=== PATIENT | female | born 1935 | race Caucasian/White ===

== ENCOUNTER 2018-03-28 14:06 | Inpatient (IN) | payer OTHER ==
[~2018-03-28] VITALS: Ht 162.6 cm; Wt 71.2 kg
[~2018-03-28 14:06] MED LIST: ADULT LOW DOSE81 MG PO; CENTRUM SILVER1 EAC4 PO; HYDROCODON-ACE1 EAC7 PO; NEPHROCAPS SOFT1 CAP; NOHOMEMEDICATIONS; PAXIL10 MG; TRAMADOL 50 MG50 MG PO; TUMS PO; TYLENOL325 MG PO
[2018-03-28 14:07] VITALS: BP 181/65
[2018-03-28 14:39] LABS: ABSOLUTE BASOPHILS 0.1 thou/uL (0.0-0.2); ABSOLUTE EOSINOPHILS 0.1 thou/uL (0.0-0.7); ABSOLUTE LYMPHOCYTES 1.3 thou/uL (0.8-5.3); ABSOLUTE MONOCYTES 0.5 thou/uL (0.0-1.2); ABSOLUTE NEUTROPHILS 3.8 thou/uL (1.6-8.1); EOSINOPHILS 2.3 %; HEMOGLOBIN 15.2 gm/dL (12.0-15.0); LYMPHOCYTES 22.6 %; MCH 33.3 pg (26.0-34.0); MCHC 34.5 g/dL (28.0-37.0); MCV 96.5 fL (80.0-100.0); MONOCYTES 8.4 %; MPV 7.3 fl. (7.2-11.1); NUCLEATED RBCS 0 /100WBC; PLATELET COUNT* 251 thou/uL (150-400); POLYS 65.7 %; RBC 4.56 mil/uL (4.20-5.00); RDW-CV 13.2 % (10.5-14.5); WBC 5.7 thou/uL (4.0-11.0)
[2018-03-28 14:45] LABS: ANION GAP 5 mmol/L (7-16); BUN 12 mg/dL (7-18); CALCIUM 8.8 mg/dL (8.5-10.1); CHLORIDE 104 mmol/L (98-107); CO2 29 mmol/L (21-32); GLUCOSE 143 mg/dL (70-99); POTASSIUM 3.5 mmol/L (3.5-5.1); SODIUM 138 mmol/L (136-145)
[2018-03-28 14:52] LABS: ALBUMIN 3.5 g/dL (3.4-5.0); ALKALINE PHOSPHATASE 93 U/L (46-116); SGOT 18 U/L (15-37); SGPT 24 U/L (30-65); TOTAL BILIRUBIN 0.7 mg/dL (<0.1-1.0); TOTAL PROTEIN 6.7 g/dL (6.4-8.2); TROPONIN-I LEVEL <0.06 ng/mL (<0.06)
[2018-03-28] MEDS ORDERED: PAXIL10 MG PO (14:55)
[2018-03-28 14:57] LABS: URINE BILIRUBIN NEGATIVE (Negative); URINE BLOOD NEGATIVE (Negative); URINE CLARITY CLEAR; URINE COLOR YELLOW; URINE GLUCOSE-RANDOM NEGATIVE (Negative); URINE KETONES TRACE (Negative); URINE LEUKOCYTES-REFLEX TRACE (Negative); URINE NITRITE-REFLEX NEGATIVE (Negative); URINE PROTEIN TRACE (Negative); URINE SPECIFIC GRAVITY >= 1.030 (1.005-1.030)
[2018-03-28 14:58] LABS: SQUAMOUS 4-10 Moderate /LPF (0-3)
[2018-03-28 14:59] LABS: AMORPHOUS URATES Few /LPF (None Seen); BACTERIA-REFLEX 1-9 Few /HPF (None Seen); CASTS None Seen /LPF (None Seen); URINE RBC None Seen /HPF (0-2); URINE WBC-REFLEX None Seen /HPF (0-5)
[2018-03-28 15:07] LABS: APTT 23.8 Seconds (25.0-31.3); PROTIME 10.1 Seconds (9.20-11.50)
[2018-03-28 15:55] VITALS: BP 153/82
[2018-03-28 16:45] VITALS: BP 156/76
--- NOTE | 2018-03-28 18:32 | NUR ---
PATIENT ARRIVED FROM ER THIS EVENING. PATIENT SETTLED TO ROOM. CHILDREN AT BEDSIDE. HISTORY, ASSESSMENT AND VITALS COMPLETED AND DOCUMENTED. PATIENT RESTING IN BED AT THIS TIME. PAIN MEDICATION GIVEN X 1. HERNANDEZ IN PLACE DRAINING YELLOW URINE. PATIENT HAS IV FLUIDS INFUSING ORDERED. PATIENT DENIES ANY NEEDS AT THIS TIME. CALL LIGHT WITHIN REACH. BED ALARM ON. WILL CONTINUE TO MONITOR.
[2018-03-29] VITALS (7 sets, daily range): BP systolic 128–166; BP diastolic 64–82
[2018-03-29 04:17] LABS: HEMATOCRIT 39.5 % (37.0-47.0); HEMOGLOBIN 13.3 gm/dL (12.0-15.0)
--- NOTE | 2018-03-29 06:21 | NUR ---
PATIENT HAS SLEPT MOST OF THE NIGHT BUT GRIMACES WHEN REPOSITIONED AND REFUSES COMPLETE TURNS IN BED. PATIENT IS ALERT TO SELF BUT VERY CONFUSED. PAIN MEDICATION GIVEN NEEDED AND CHARTED. VSS ON 2L 02 VIA NASAL CANNULA. PATIENT HAS REMAINED NPO D/T SCHEDULED SURGERY THIS AM. HERNANDEZ TO DEPENDENT DRAINAGE WITH REBECCA COLORED URINE OUTPUT. IV IN LEFT AC-NS @ 100ML/HR. FALL PRECAUTIONS IN PLACE AND HOURLY ROUNDS MADE. WILL CONTINUE WITH PLAN OF CARE AND NURSING TO MONITOR.
--- NOTE | 2018-03-29 11:42 | EKG ---
[place] [address] ELECTROCARDIOGRAM REPORT Name: YAHIR CARDENAS Room: [address] ADM IN M.R.#: [id number] Admission: 03/28/18 Attend Phys: Thang Carlson Discharge: Date of : 31 Report #: [id number] THIS REPORT FOR: //name// [facility] ED Test Date: 2018-03-28 Test Time: 14:29:35 Pat Name: YAHIR CARDENAS Department: Room: [facility] Gender: F Rn Urgent Care: LAM : 1935 Requested By: Tomeka Varela Order Number: [id number] MD: Ed Vázquez Measurements Intervals [place] Rate: 70 P: 61 IA: 131 QRS: -7 QRSD: 93 T: 41 QT: 393 QTc: 425 Interpretive Statements Sinus rhythm Inferior infarct, old Baseline wander in lead(s) I,III,aVR,aVL,aVF,V1 Compared to ECG 01/24/2010 13:56:40 Sinus bradycardia no longer present Electronically Signed On 03-29-2018 11:42:09 LABORATORY COORDINATOR by Ed Vázquez [email or web address] <ELECTRONICALLY SIGNED> By: Ed Vázquez MD, FAC 03/29/18 1142 1429 1429 Ed Vázquez MD, [facility] /EPI
--- NOTE | 2018-03-29 20:19 | NUR ---
PATIENT RESTING IN BED. PATIENT HAS HIP FRACTURE REPAIR THIS AM. PATIENT RETURNED TO FLOOR THIS AFTERNOON. PATIENT PLACED ON TELEMETRY PER ORDER. PATIENT HAS BEEN TACHYCARDIC. PATIENT OXYGEN IS AT 10L HFC, CONTINUOUS SAT MONITOR ON AND SATS CURRENTLY AT 96%. PATIENT HAS HAD PAIN TREATED ADEQUATELY WITH MORPHINE AND HYDROCODONE. PATIENT HAS REFUSED TURNS DUE TO PAIN. DRESSING TO LEFT HIP IS DRY AND INTACT. PATIENT HAS REFUSED MEALS AND TAKEN ONLY SMALL AMOUNT OF ICE CHIPS. BED ALARM IS ON. WILL CONTINUE TO MONITOR.
[2018-03-30 04:01] VITALS: BP 155/105
[2018-03-30 04:25] LABS: HEMATOCRIT 35.5 % (37.0-47.0); HEMOGLOBIN 12.2 gm/dL (12.0-15.0)
--- NOTE | 2018-03-30 06:03 | NUR ---
PATIENT HAS SLEPT MOST OF THE NIGHT. PAIN CONTROLLED WITH IV PAIN MEDICATION ORDERED AND CHARTED. PATIENT IS ALERT TO SELF BUT VERY CONFUSED AND ANXIOUS BUT HAS HISTORY OF DEMENTIA AND ANXIETY. PATIENT GRIMACES AND YELLS OUT WHEN REPOSITIONED AND REFUSES COMPLETE TURNS BUT PATIENT REPOSITIONED EVERY 2HRS. VSS ALTHOUGH 02 SATS DECREASES AT TIMES WHEN PATIENT GETS ANXIOUS AND PULSE TACHY. DRESSING TO LEFT HIP IS C/D/I AND POLAR PACK ON HIP. FALL PRECAUTIONS IN PLACE AND HOURLY ROUNDS MADE. WILL CONTINUE WITH PLAN OF CARE AND NURSING TO MONITOR.
[2018-03-30 12:00] VITALS: BP 150/76
--- NOTE | 2018-03-30 16:18 | NUR ---
SW met with pt and pt 2 dtrs bedside to complete assessment, introduce self, and SW role. Pt alert. Pt lives at home with one of her dtrs, Lizbeth and has support in other dtr as well, Corinne. Pt dtrs anticipate pt needing SNF at dc and their preference is [facility]. Pt does not have any oxygen at home. Pt has hx of SNF at [facility]. SW to continue to follow to assist with safe dc planning.
[2018-03-30 16:43] VITALS: BP 168/79
[2018-03-30 19:30] VITALS: BP 141/81
[2018-03-30 23:37] LABS: HEMATOCRIT 34.1 % (37.0-47.0); HEMOGLOBIN 11.5 gm/dL (12.0-15.0); MCHC 33.7 g/dL (28.0-37.0); MCV 97.8 fL (80.0-100.0); RBC 3.49 mil/uL (4.20-5.00); RDW-CV 13.2 % (10.5-14.5); WBC 15.4 thou/uL (4.0-11.0)
[2018-03-30 23:55] LABS: CREATININE 1.2 mg/dL (0.6-1.3)
[2018-03-31 01:17] LABS: URINE BILIRUBIN NEGATIVE (Negative); URINE BLOOD TRACE (Negative); URINE CLARITY CLEAR; URINE COLOR YELLOW; URINE GLUCOSE-RANDOM NEGATIVE (Negative); URINE KETONES NEGATIVE (Negative); URINE LEUKOCYTES-REFLEX NEGATIVE (Negative); URINE NITRITE-REFLEX NEGATIVE (Negative); URINE PROTEIN TRACE (Negative); URINE SPECIFIC GRAVITY >= 1.030 (1.005-1.030); URINE UROBILINOGEN 0.2 E.U./dl (0.2-1.0)
[2018-03-31 02:08] LABS: HEMATOCRIT 33.2 % (37.0-47.0); HEMOGLOBIN 11.3 gm/dL (12.0-15.0)
[2018-03-31 04:00] VITALS: BP 163/83
--- NOTE | 2018-03-31 04:00 | NUR ---
PT TRANSFERED AT 0045. TESTED POSITIVE FOR SEPSIS. STARTED ABX AND BOLUS 1L OF FLUIDS. 8L OF OXYGEN PER NC AND KEEPS PULLING AT TUBING. PT CONFUSED.
[2018-03-31 08:00] VITALS: BP 158/82
--- NOTE | 2018-03-31 09:35 | NUR ---
CM faxed initial referral to [facility] to determine their ability to accept Pt at ne. Following.
[2018-03-31 13:36] VITALS: BP 170/61
--- NOTE | 2018-03-31 14:40 | 2DMMODE ---
[place] [address] 2 D/M-MODE ECHOCARDIOGRAM Name: YAHIR CARDENAS Room: [facility]- ADM IN [facility]#: [id number] Admission: 03/28/18 Attend Phys: Shankar Sadler Discharge: Date of : 31 Date of Service: 03/31/18 1440 Report #: [id number] THIS REPORT FOR: //name// APPROVED REPORT Study performed: 03/31/2018 11:00:40 EXAM: Comprehensive 2D, Doppler, and color-flow Echocardiogram Patient Location: In-Patient Room #: 213 Status: routine BSA: 1.76 HR: 80 bpm BP: 163/83 mmHg Rhythm: NSR Other Information Study Quality: Fair Indications Abnormal ECG 2D Dimensions IVSd: 11.26 (7-11mm) LVOT Diam: 20.04 (18-24mm) LVDd: 47.77 mm PWd: 10.19 (7-11mm) Ascending Ao: 29.79 (22-36mm) LVDs: 27.24 (25-40mm) Aortic Root: 30.19 mm Volumes Left Atrial Volume (Systole) LA ESV Index: 28.70 mL/m2 Aortic Valve AoV Peak Chung.: 1.52 m/s AO Peak Gr.: 9.26 mmHg LVOT Max P.01 mmHg AO Mean Gr.: 4.63 mmHg LVOT Mean P.53 mmHg LVOT Max V: 1.66 m/s AO V2 VTI: 29.72 cm LVOT Mean V: 1.09 m/s LIZBET (VTI): 2.89 cm2 LVOT V1 VTI: 27.19 cm Mitral Valve E/A Ratio: 0.61 MV Decel. Time: 244.49 ms MV E Max Chung.: 0.63 m/[place] [address] 2 D/M-MODE ECHOCARDIOGRAM Name: YAHIR CARDENAS Room: [address] IN .R.#: [id number] Admission: 03/28/18 Attend Phys: Shankar Sadler Discharge: Date of : 31 Date of Service: 03/31/18 1440 Report #: [id number] MV PHT: 70.90 ms MVA (PHT): 3.10 cm2 TDI E/Lateral E': 6.30 Lateral E' Chung.: 0.10 m/s Pulmonary Valve PV Peak Chung.: 1.33 m/s PV Peak Gr.: 7.10 mmHg Tricuspid Valve RAP Estimate: 5.00 mmHg TR Peak Gr.: 24.38 mmHg RVSP: 29.00 mmHg PA Pressure: 29.00 mmHg Left Ventricle The left ventricle is normal size. There is normal LV segmental wall motion. There is normal left ventricular wall thickness. Left ventricular systolic function is normal. The left ventricular ejection fraction is within the normal range. LVEF is 65-70%. Grade I - abnormal relaxation pattern. Right Ventricle The right ventricle is normal size. The right ventricular systolic function is normal. Atria The left atrium size is normal. The right atrium size is normal. Aortic Valve The aortic valve is normal in structure. No aortic regurgitation is present. There is no aortic valvular stenosis. Mitral Valve The mitral valve is normal in structure. Trace mitral regurgitation. No evidence of mitral valve stenosis. Tricuspid Valve The tricuspid valve is normal in structure. Mild tricuspid regurgitation. estimated pa pressure 30 mm Hg Pulmonic Valve Pulmonic valve is not well visualized. There is no pulmon[place] [address] 2 D/M-MODE ECHOCARDIOGRAM Name: YAHIR CARDENAS Room: [address] IN [facility]#: [id number] Admission: 03/28/18 Attend Phys: Shankar Sadler Discharge: Date of : 31 Date of Service: 03/31/18 1440 Report #: [id number] Great Vessels The aortic root is normal in size. IVC is not well visualized. Pericardium There is no pericardial effusion. <Conclusion> Left ventricular systolic function is normal. The left ventricular ejection fraction is within the normal range. <ELECTRONICALLY SIGNED> By: Ed Vázquez MD, FAC 03/31/18 1440 1440 1440 Ed Vázquez MD, FAC /INF
--- NOTE | 2018-03-31 16:36 | EKG ---
[place] [address] ELECTROCARDIOGRAM REPORT Name: YAHIR CARDENAS Room: [address] ADM IN M.R.#: [id number] Admission: 03/28/18 Attend Phys: Thang Carlson Discharge: Date of : 31 Report #: [id number] THIS REPORT FOR: //name// [facility] Test Date: 2018-03-30 Test Time: 22:51:10 Pat Name: YAHIR CARDENAS Department: Room: [address] Gender: F Systems Development Manager: [place] : 1935 Requested By: Genet Varner Order Number: [id number] Justin MD: Ed Vázquez Measurements Intervals [place] Rate: 113 P: 54 CO: 113 QRS: -8 QRSD: 96 T: 153 QT: 335 QTc: 460 Interpretive Statements Sinus tachycardia Atrial premature complexes Nonspecific repol abnormality, diffuse leads Baseline wander in lead(s) V4 Compared to ECG 03/28/2018 14:29:35 Atrial premature complex(es) now present Sinus rhythm no longer present Electronically Signed On 03-31-2018 16:35:49 CONCRETE PRODUCTS DISPATCHER by Ed Vázquez [email or web address] <ELECTRONICALLY SIGNED> By: Ed Vázquez MD, FACC 03/31/18 1635 2251 2251 Ed Vázquez MD, [facility] /EPI
[2018-03-31 17:11] VITALS: BP 152/88
[2018-04-01] VITALS: BP 142/85; BP 147/81
[2018-04-01 04:00] VITALS: BP 171/75
--- NOTE | 2018-04-01 04:39 | NUR ---
ASSUMED CARE OF PT AT 1900. PT IS VERY CONFUSED. VSS. BURROUGHS. SOME PAIN NOTED. PT IS IN SOFT WRIST RESTRAINTS TO PROTECT HER FROM PULLING OUT URINARY CATHETER AND OTHER MEDICAL LINES. WHILE TRYING TO RELEASE PT FROM RESTRAINTS SHE GRABBED HER URINARY CATHETER AND BEGAN PULLING IT ALMOST PULLING IT OUT. RESTRAINTS WHERE PLASCED BACK UPON THE PT. PT IS IN SINUS RYTHM. PT IS A Q2 TURN. PT IS SLEEPING QUIETLY IN BED. RESPIRATIONS ARE EVEN AND NONLABORED. WILL CONTINUE TO MONITOR PT.
[2018-04-01 05:26] LABS: CALCIUM 8.5 mg/dL (8.5-10.1); CREATININE 0.8 mg/dL (0.6-1.3); MAGNESIUM 2.4 mg/dL (1.8-2.4); POTASSIUM 4.2 mmol/L (3.5-5.1)
[2018-04-01 08:15] VITALS: BP 141/78
--- NOTE | 2018-04-01 11:09 | NUR ---
Spoke with , anticipate dc within a few days, Pt continues to be confused and not wanting to bare weight on her leg. CM updated Kerline at [facility], asked that insurance auth be initiated tomorrow for a possible weekend dc, if they are able to accept Pt for skilled. Following.
[2018-04-01 12:00] VITALS: BP 155/89
--- NOTE | 2018-04-01 14:59 | EKG ---
[place] [address] ELECTROCARDIOGRAM REPORT Name: YAHIR CARDENAS Room: [address] ADM IN M.R.#: [id number] Admission: 03/28/18 Attend Phys: Thang Carlson Discharge: Date of : 31 Report #: [id number] THIS REPORT FOR: //name// [facility] Test Date: 2018-04-01 Test Time: 08:16:33 Pat Name: YAHIR CARDENAS Department: Room: [address] Gender: F Ice Platform Supervisor: : 1935 Requested By: Ed Vázquez Order Number: [id number] Justin MD: Ed Vázquez Measurements Intervals [place] Rate: 84 P: 64 [place]: 124 QRS: -8 QRSD: 86 T: 29 QT: 355 QTc: 420 Interpretive Statements Sinus rhythm Abnormal R-wave progression, early transition Baseline wander in lead(s) II,III,aVF,V3 Compared to ECG 03/30/2018 22:51:10 Left ventricular hypertrophy no longer present Sinus tachycardia no longer present Atrial premature complex(es) no longer present Electronically Signed On 04-01-2018 14:59:14 SALOONKEEPER by Ed Vázquez [email or web address] <ELECTRONICALLY SIGNED> By: Ed Vázquez MD, FACC 04/01/18 1459 5 5 Ed Vázquez MD, FAC /EPI
[2018-04-01 16:00] VITALS: BP 177/88
--- NOTE | 2018-04-01 17:17 | CON ---
[facility] [address] [place] [address] CONSULTATION Name: CARDENASYAHIR Yessy Room: [address] IN M.R.#: [id number] Admission: 03/28/18 Attend Phys: Thang Carlson Discharge: Date of : 31 Report #: [id number] THIS REPORT FOR: //name// CC: Ashley Sadler DATE OF SERVICE: 03/31/2018 CARDIOLOGY CONSULTATION HISTORY OF PRESENT ILLNESS: The patient is an 82-year-old single white female who I was asked to see in the hospital today after she was noted to have a rapid heartbeat. The history is obtained from the current records as well as the daughter. The patient is currently unresponsive. There are no old records available. According to daughter, the patient has no history of heart disease. She does have severe dementia and is not very active. She does feed herself. She does not use a cane or walker; however, she has a significant amount of memory loss. Apparently, the patient tripped and fell 5 days ago at home. She complained of left hip pain. She was found to have a left hip fracture. Three days ago, she was taken to the operating room and had hip surgery. Since surgery, her mental status has been decreased. She has had no appetite. Yesterday, she was noted to be tachycardic. She was transferred to a monitored bed. I was asked to see her for further evaluation and treatment. She denies any chest pain, shortness of breath, lightheadedness. She was told in the past she had a heart murmur. PAST MEDICAL HISTORY: Significant for hysterectomy. She does have cataracts, but no surgery. She has no history of hypertension, diabetes, hyperlipidemia. MEDICATIONS: Paxil. ALLERGIES: SHE HAS AN ALLERGY TO AN ANTIBIOTIC. FAMILY HISTORY: Negative for heart disease. SOCIAL HISTORY: She has been twice. Quit smoking years ago. No alcohol use. She lives with daughter here in [place]. REVIEW OF SYSTEMS: No history of stroke, asthma, peptic ulcer disease, liver disease, kidney disease or cancer. PHYSICAL EXAMINATION: GENERAL: Revealed an elderly female lying in bed with her eyes closed. She was mumbling. VITAL SIGNS: She had a blood pressure of 140/80, pulse is 110[place] [address] CONSULTATION Name: YAHIR CARDENAS Room: [address]#: [id number] Admission: 03/28/18 Attend Phys: Thang Carlson Discharge: Date of : 31 Report #: [id number] afebrile. HEENT: She was anicteric. Mucous membranes are dry. NECK: Neck veins do not appear distended. CHEST: Clear to auscultation. CARDIOVASCULAR: Regular tachycardia, no significant murmur. ABDOMEN: Soft. EXTREMITIES: Had no edema. Dorsalis pedis pulses 1+ bilaterally. SKIN: Cool and dry. NEUROLOGIC: She was unresponsive to voice. LABORATORY DATA: ECG on admission showed a sinus rhythm, possible old inferior infarction. On the monitor, the patient has been noted to be in sinus tachycardia with PACs. Last night, she developed a supraventricular tachycardia at 150 beats per minute, appeared to be consistent with an atrial tachycardia. Currently, she is back in a sinus tachycardia. Workup so far, she had a chest x-ray on admission that showed mild cardiomegaly, evidence of interstitial fibrosis. She had CT scan of the head without contrast on admission that showed no acute abnormality, evidence of small vessel disease. Her previous carotid Doppler study in 2009 showed no significant stenosis. LABORATORY WORK: Sodium 143, creatinine 1.2, glucose 170. Her liver function studies were normal. Her white blood cell count 15.4, hemoglobin is 15.2 on admission, is now 11.3. Urinalysis negative for glucose, trace blood, negative for leukocytes. IMPRESSION AND RECOMMENDATIONS: 1. Episode of paroxysmal atrial tachycardia. I would check echocardiogram and thyroid function studies. I would not treat at this time. The patient is unable to take oral medications presently. 2. Dementia. 3. Recent hip fracture. 4. Elevated blood sugar. I would rule out diabetes. 5. Elevated blood pressure. Possible hypertension. <ELECTRONICALLY SIGNED> By: Ed Vázquez MD, FACC 04/01/18 1717 0816 0012Damaya Vázquez MD, FACC /nt
--- NOTE | 2018-04-01 19:47 | NUR ---
ASSUMED PT CARE AT 0730, FULL ASSESMENT DONE CHARTED. PT DISORIENTED, CONFUSED, AND COMBATIVIE AT TIMES. PTS HRENANDEZ REMOVED THIS AM. PT NOT PULLING ON ANYTHING THIS AFTERNOON, DID BECOME ALITTLE MORE AGITATED THIS EVENING PULLING GOWN OFF AND HEART MONIOTR. PT REORIENTED MANY TIMES TODAY. NOT EATING MUCH, IS ASSISTED WITH FOOD, TOOK PILLS CRUSHED IN PUDDING WITH A LOT OF ASSISTANCE. PT REFUSING TO GET UP WITH PT. PAIN MEDS GIVEN PER MAR AND POLAR PACK IN PLACE. FALL PRECAUTIONS IN PLACE. CALL LIGHT IN REACH, PT DOES NOT ATTEMPT TO USE IT.
[2018-04-02] VITALS: BP 124/68
[2018-04-02 04:00] VITALS: BP 185/73
--- NOTE | 2018-04-02 04:19 | NUR ---
RECIEVED REPORT AN ASSUMED CARE AT 1900. VITAL SIGNS STABLE. MAX ASSIST. PT IN PAIN AND PRN MEDS GIVEN ORDERED. A&O X 1 PERSON. PT ON 8L NC. ASSESSMENT COMPLETED. BED LOCKED, ALARM, AND CALL LIGHT WITHIN REACH. HOURLY ROUNDING DONE AND ALL NEEDS MET. NURSING WILL CONTINUE TO MONITOR.
--- NOTE | 2018-04-02 06:07 | CON ---
[address] [address] CONSULTATION Name: YAHIR CARDENAS Room: [address] IN M.R.#: [id number] Admission: 03/28/18 Attend Phys: Thang Carlson Discharge: Date of : 31 Report #: [id number] THIS REPORT FOR: //name// CC: Ashley Sadler DATE OF SERVICE: 04/01/2018 Infectious Disease Consultation: ATTENDING PHYSICIAN: Dr. Sadler. REASON FOR EVALUATION: Postoperative fevers, likely pneumonitis in the setting of admission with acute left hip fracture status post repair. HISTORY OF PRESENT ILLNESS: Chart reviewed, patient is an 82-year-old with a history of dementia who sustained injury as a result of a fall, sustained complex hip fracture, intertrochanteric fracture with displacement underwent intramedullary nailing. Postop course has been complicated by fairly profound encephalopathy. It is difficult to ascertain any details of her history. She repeats words over and over, was found to have low-grade temperature elevation, yesterday 99.6. Chest x-ray was taken to evaluate and noted some basilar infiltrates, left greater than right with possible effusion. Lactic acid is 1.2, it is down from 2.1. Blood cultures are sterile thus far. Empirically placed on antimicrobials with meropenem and briefly been on Cipro. ALLERGIES: LINCOMYCIN. MEDICATIONS: Include quetiapine, methylprednisolone, meropenem, rivaroxaban, morphine, ipratropium, albuterol inhaler, p.r.n. analgesics, antiemetics, paroxetine, tramadol, olanzapine. PAST MEDICAL HISTORY: As noted above the dementia, history of anxiety, reflux. SOCIAL HISTORY: Nonsmoker, no ethanol, no illicit drug use. FAMILY HISTORY: Noncontributory. REVIEW OF SYSTEMS: It is not obtainable due to the profound encephalopathy, perhaps even psychosis. PHYSICAL EXAMINATION: VITAL SIGNS: Temperature 98.6. GENERAL: She is chronically ill appearing. She has got acute on chronic distress with echolalia. It is difficult for her to find a comfortable position[place] [address] CONSULTATION Name: YAHIR CARDENAS Room: [address] IN [facility]#: [id number] Admission: 03/28/18 Attend Phys: Thang Carlson Discharge: Date of : 31 Report #: [id number] VITAL SIGNS: Temperature 97.8, pulse 102, respirations 17, blood pressure 155/89. SKIN: Warm. No rash. NECK: Apparently supple. LUNGS: Scattered coarse breath sounds. Borderline tachypnea. HEART: Regular, tachycardic, has a soft systolic murmur. ABDOMEN: Soft. I do not appreciate any peritoneal signs. GENITOURINARY AND RECTAL: Deferred. EXTREMITIES: Left hip has got a dressing in place. There is no drain at this point. I do not see any particular evidence of any inflammatory eruption consistent with a cellulitic process. LABORATORY DATA: Lactic acid 1.2. TSH of 0.181. Electrolytes: Sodium 147, potassium 4.2, chloride 111, bicarbonate is 30, BUN and creatinine 25 and 0.8, glucose of 148. Chest x-ray as noted above, worse bilateral infiltrates at the bases. CBC: White count 15.4, H and H 11.5 and 34.1, platelets of 230. Reviewed operative report of the closed reduction and cephalomedullary nailing and the reverse obliquely left intertrochanteric femur fracture. Blood cultures are sterile thus far. ASSESSMENT: Postoperative pneumonitis. I think the patient is quite compromised at this point. I agree with empiric antimicrobial therapy. I do not think there is any sputum forthcoming at this point. We will await pending blood culture results. Continue to monitor expectantly support with supplemental oxygen. Certainly, at risk for nosocomial related infectious complications in addition to what has been identified thus far. <ELECTRONICALLY SIGNED> By: Aaron Thornton MD 04/02/18 0607 1406 0330Aaron Thornton MD /nt
[2018-04-02 09:00] VITALS: BP 133/69
--- NOTE | 2018-04-02 10:21 | NUR ---
Yvonne from [facility] came to daphnieal yesterday, Pt continues to be confused, Yvonne to come and reeval today. Per Yvonne if they are able to accept Pt, Yvonne does not believe that Pt would be a good weekend admission, d/t Pt's acuity, would prefer to admit during the work week, when all of the staff are available.
[2018-04-02 12:00] VITALS: BP 185/99
[2018-04-02 12:05] VITALS: BP 176/101
[2018-04-02 14:40] LABS: HEMATOCRIT 28.9 % (37.0-47.0); MCH 34.3 pg (26.0-34.0); MCHC 34.8 g/dL (28.0-37.0); MCV 98.6 fL (80.0-100.0); MPV 7.3 fl. (7.2-11.1); NUCLEATED RBCS 0 /100WBC; PLATELET COUNT* 235 thou/uL (150-400); RBC 2.93 mil/uL (4.20-5.00); WBC 10.7 thou/uL (4.0-11.0)
[2018-04-02 14:53] LABS: ALBUMIN 2.9 g/dL (3.4-5.0); CALCIUM 8.5 mg/dL (8.5-10.1); CREATININE 0.8 mg/dL (0.6-1.3); MAGNESIUM 2.5 mg/dL (1.8-2.4); POTASSIUM 3.9 mmol/L (3.5-5.1); TOTAL BILIRUBIN 1.4 mg/dL (<0.1-1.0); TOTAL PROTEIN 5.8 g/dL (6.4-8.2)
[2018-04-02 15:39] LABS: ABSOLUTE LYMPHOCYTES 0.2 thou/uL (0.8-5.3); ABSOLUTE MONOCYTES 0.2 thou/uL (0.0-1.2); ABSOLUTE NEUTROPHILS 10.3 thou/uL (1.6-8.1); MYELOCYTES 1 %; PLATELET ESTIMATE ADEQUATE
--- NOTE | 2018-04-02 15:53 | NUR ---
ASSUMED PT CARE AT 0700 PT IS AWAKE PT IS CONFUSED PT HAS APHASIA PT SHOWS SIGNS OF PAIN GAVE PAIN MEDS THROUGHOUT SHIFT, PHYSICIAL THERAPY GOT PT UP IN CHAIR WITH ASSIST X 2 PT IS UNABLE TO HELP WITH TRANSFERS, PT IS ST ON THE MONITOR, PT UP IN CHAIR PT STARTED TO SCREAM AND SPEECH WAS NOT INTELLIABLE PT TRANSFERED BACK TO BED AND PAIN MEDS GIVEN PT SHOWED SIGNS OF PAIN REASSESSED PT WHO IS SLEEPING AND CALM, PT HAS ANTIBIOTICS RUNNING, PT IS Q 2 TURNS, PT IS A FALL RISK BED ALARM IS ON, WILL CONTINUE TO MONITOR
[2018-04-02 20:00] VITALS: BP 156/65
[2018-04-03 00:23] VITALS: BP 142/89
--- NOTE | 2018-04-03 03:05 | NUR ---
PT SLEEPY CONFUSED. TURN Q 2 HRS. MORPHINE GIVEN ONCE FOR PAIN IN L HIP. TELEMETRY SHOWS SR. O2 ON 8 LITERS HIGH FLOW.
[2018-04-03 04:10] VITALS: BP 170/85
--- NOTE | 2018-04-03 04:43 | NUR ---
BLADDER SCAN 166ML
[2018-04-03 12:00] VITALS: BP 173/65
[2018-04-03 16:00] VITALS: BP 144/125
--- NOTE | 2018-04-03 19:55 | NUR ---
ASSUMED PT CARE AT 0700 PT IS AWAKE CONFUSED PT SHOWS SIGNS OF PAIN GAVE PAIN MEDS PT REASSESSED PT WHO IS CALM, PT IS Q 2 TURNS, PT IS A FALL RISK BED ALARM IS ON, PT IS SA ON THE MONITOR, PT IS BEDREST, PT TAKES MEDS CRUSHED IN [place] PUDDING, PHYSICIAN ORDERED ENSURE WHICH PT DRANK 1 COMPLETE BOTTLE AT DINNER, PT SHOWS NO SIGNS OF SOA ON 8L/HIFLOW, PT IS INCONTIET, WILL CONTINUE TO MONITOR
[2018-04-03 20:00] VITALS: BP 169/66
[2018-04-04] VITALS: BP 171/84
[2018-04-04 04:59] VITALS: BP 169/82
[2018-04-04 05:03] LABS: ABSOLUTE LYMPHOCYTES 0.4 thou/uL (0.8-5.3); ABSOLUTE MONOCYTES 0.5 thou/uL (0.0-1.2); ABSOLUTE NEUTROPHILS 9.6 thou/uL (1.6-8.1); BASOPHILS 0.1 %; HEMATOCRIT 29.5 % (37.0-47.0); HEMOGLOBIN 10.1 gm/dL (12.0-15.0); LYMPHOCYTES 3.4 %; MCH 33.8 pg (26.0-34.0); MCHC 34.2 g/dL (28.0-37.0); MONOCYTES 4.7 %; MPV 7.7 fl. (7.2-11.1); NUCLEATED RBCS 0 /100WBC; PLATELET COUNT* 212 thou/uL (150-400); POLYS 91.8 %; RBC 2.98 mil/uL (4.20-5.00); RDW-CV 13.1 % (10.5-14.5); WBC 10.5 thou/uL (4.0-11.0)
[2018-04-04 05:24] LABS: CALCIUM 8.6 mg/dL (8.5-10.1); CREATININE 0.7 mg/dL (0.6-1.3); POTASSIUM 4.3 mmol/L (3.5-5.1)
--- NOTE | 2018-04-04 08:14 | NUR ---
PT CARE ASSUMED AT 1930. PT IS DISORIENTED AND UNRESPONSIVE. SAT 94% IN 8L HFNC. CALL LIGHT WITHIN REACH AND FALL PREACAUTIONS MAINTAINED. VSS AND CHARTED. PT IS INCONTINENT, CHANGED NEEDED, REPEATS WORD. ANSWERS QUESTIONS BUT DOESNT FOLLOW. CONTRACTS HER HAND REAL TIGHT. PAIN MEDICATIONS GIVEN PER EMAR NEEEDED AND CHARTED. SEEN SLEEPING AFTER THE PAIN MEDICATION.
[2018-04-04 12:00] VITALS: BP 187/98
[2018-04-04 16:47] VITALS: BP 190/59
--- NOTE | 2018-04-04 18:14 | NUR ---
PATINET RESTING IN BED. Q2HOUR TURNS AND RESTING PEACEFULY. PATINET IS AOX1 AND HARD TO REORIENT. LEFT ORIF SURGICAL WOUND. VITAL SIGNS STABLE ANDPAITNET IN NO APPARENT DIGNS OF DISTRESS. HOURLY ROUNDING COMPLETED COMPLETED FOR PATINET SAFETY AND PATIENT IS PROGRESSING TOWARDS GOALS.
[2018-04-04 20:32] VITALS: BP 147/95
[2018-04-05] VITALS: BP 168/92
[2018-04-05 04:00] VITALS: BP 179/91
--- NOTE | 2018-04-05 06:02 | NUR ---
ASSUMED CARE OF PATIANT AT APPROX 1930. PATIENT ALERT BUT VERY CONFUSED. VSS ON 5 LITERS 02 VIA NC. ASSESSMENT COMPLETED AND CHARTED. PATIENT IS INCONTINENT OF BOWEL AND BLADDER. LARGE BOWEL MOVEMENT THIS SHIFT. IV PATENT WITH FLUIDS AND ANTIBIOTICS INFUSED. DRESSING TO LEFT HIP CHANGED THIS SHIFT. PAIN MEDICATION GIVEN ORALLY, CRUSHED IN PUDDING, NEEDED. POSITION CHANGES COMPLETED AND ORDERED. NSR ON THE MONITOR. HOURLY ROUNDS MAINTAINED, CALL LIGHT WITHIN REACH, NURSING WILL CONTINUE TO MONITOR.
[2018-04-05 06:08] LABS: HEMATOCRIT 31.4 % (37.0-47.0); HEMOGLOBIN 10.6 gm/dL (12.0-15.0); MCHC 33.6 g/dL (28.0-37.0); MCV 98.2 fL (80.0-100.0); MPV 8.4 fl. (7.2-11.1); RBC 3.2 mil/uL (4.20-5.00); RDW-CV 13.1 % (10.5-14.5); WBC 13.7 thou/uL (4.0-11.0)
[2018-04-05 06:38] LABS: CALCIUM 8.7 mg/dL (8.5-10.1); CREATININE 0.6 mg/dL (0.6-1.3); MAGNESIUM 2.3 mg/dL (1.8-2.4); POTASSIUM 3.5 mmol/L (3.5-5.1)
[2018-04-05 08:00] VITALS: BP 163/76
--- NOTE | 2018-04-05 10:41 | NUR ---
CM had a lengthy discussion with Pt's dtr regarding disposition. Dtr would like to see Pt go to skilled, unsure of Pt's ability to progress with therapies. Discussed LTC, dtr partially in agreement, but concerned about the care that Pt will receive. MARIANO contacted Kerline at [facility], they do not have any LTC beds and cannot accept Pt for skilled. CM provided dtr with SNF lift per her insurance. Discussed hospice, dtr open to an informational visit. Updated Dr Sanders. Discussed hospice options, Sonia from [facility] to be here at 130pm to complete informational visit. Following.
--- NOTE | 2018-04-05 11:09 | NUR ---
SHANK INSPECTOR SPOKE TO HERMAN WITH ADMISSIONS FOR [facility] TO INFORM OF THE SKILLED REFERRAL AND FAXED PATIENT'S FACESHEET, H&P, AND CLINICAL INFO. HERMAN INFORMS THAT THE FACILITY DOES HAVE BED AVIALABILITY, AND WILL REVIEW THE REFERRAL AND RETURN CALL. CM WILL REMAIN AVIALABLE TO ASSIST AND FOLLOW NEEDED.
--- NOTE | 2018-04-05 12:36 | NUR ---
Nutrition: Consult received for "Ensure b.i.d." RD ordered Ensure Enlive b.i.d. Pt likes Ensure. She is eating some, dtr helping to feed pt. Wt stable, 157#. BG 141, albumin 2.9. +BM today. Mech-[place] Ground diet. Pt will go to SNF at disch. No other nutrition interventions needed at this time. Mild risk. RD will follow po intake, wt, labs.
[2018-04-05 12:39] VITALS: BP 137/65
--- NOTE | 2018-04-05 16:13 | NUR ---
Pt qualifies for hospice, plan dc to home with [facility] hospice tomorrow. Updated Dr Sanders. Equipment to be delievered to Pt's home tomorrow between 10-1230. Updated nurse.
[2018-04-05 16:21] VITALS: BP 152/87
--- NOTE | 2018-04-05 18:22 | NUR ---
PATIENT RESTING IN BED. UP TO BEDSIDE WITH PT AND ASSIST X1. PATIENT VITAL SIGNS STABLE AND PATIENT IN NO APPARNET SIGNS OF DISTRESS AT THIS TIME. HOURLY ROUNDING COMPLETED FOR PATINET SAFETY AND PROGRESSING TOWARDS GOALS. EXPECTED DISCHARGE TO HOME WITH HOSPICE CARE ON Thursday03/06/18.
[2018-04-05 20:00] VITALS: BP 157/88
--- NOTE | 2018-04-05 23:06 | NUR ---
PT CONFUSED. PAIN MEDICATION GIVEN FOR L HIP PAIN. O2 AT 5 LITERS NC. LIQUID STOOL MIXED WITH URINE. TURN Q [address]
[2018-04-06] VITALS: BP 132/78
[2018-04-06 04:00] VITALS: BP 153/83
--- NOTE | 2018-04-06 05:25 | NUR ---
PT HAD EPISOID OF APPROX 300ML OF DARK COFFEE GROUNDS EMESIS. DR BERNAL NOTIFIED. NO NEW ORDERS AT THIS TIME. MORPHINE GIVEN TWICE.
[2018-04-06 05:53] LABS: ALBUMIN 2.6 g/dL (3.4-5.0); CALCIUM 8.1 mg/dL (8.5-10.1); CREATININE 0.6 mg/dL (0.6-1.3); PHOSPHORUS* 2.6 mg/dL (2.5-4.9); POTASSIUM 4.2 mmol/L (3.5-5.1)
--- NOTE | 2018-04-06 10:23 | NUR ---
Pt discharging to home today with [facility]. Ambulance to transport at 1pm. Updated [facility] with [facility]. CM to fax dc orders to hospice. DME delievered, dtr currently at home setting up inhome care services.
[2018-04-06 11:36] VITALS: BP 153/83
[2018-04-06 11:57] VITALS: BP 145/75
--- NOTE | 2018-04-06 15:42 | NUR ---
ORDER RECEIVED TO DISCHARGE [facility] TO HOSPICE CARE WITH DAUGHTER. MED REC, MEDICATION EDUCATON, STROKE EDUCATION COVERED AND STATED UNDERSTOOD BY DAUGHTER. IV AND TELEMETRY PACK REMOVED. PATIENT S ELONGOINGS GATHERED AND SENT WITH [facility]. EMS ARRIVED AND TRANSPORTED PATIENT VIA CART TO AMBULANCE. HOURLY ROUNDING COMPLETED FOR PATIENT SAFETY. DISCHARGE TIME OF 13:25.
--- NOTE | 2018-04-09 07:14 | OP ---
[facility] [address] [place] [address] OPERATIVE REPORT Name: YAHIR CARDENAS Room: [address] IN M.R.#: [id number] Admission: 03/28/18 Attend Phys: Thang Carlson Discharge: 04/06/18 Date of : 31 Report #: [id number] THIS REPORT FOR: //name// CC: Ashley Sadler PREOPERATIVE DIAGNOSIS: Left reverse obliquity intertrochanteric femur fracture. POSTOPERATIVE DIAGNOSIS: Left reverse obliquity intertrochanteric femur fracture. PROCEDURE: 1. Closed reduction and cephalomedullary nailing of reverse obliquity left intertrochanteric femur fracture. 2. Physician-directed fluoroscopy less than 1 hour. SURGEON: Roni Enamorado DO. EARTH SCIENCE TECHNICIAN: Pedro Valdes DO. ANESTHESIA: General. ANTIBIOTICS: Weight-appropriate dosing of Ancef IV preoperatively. ESTIMATED BLOOD LOSS: 100 mL. FLUIDS: 1100 mL lactated Ringer's. COMPLICATIONS: None. SPECIMENS: None. DRAINS: None. CONDITION OF THE PATIENT: Stable to PACU. IMPLANTS: [place] Gamma cephalomedullary nail, 11 x 400 x 125 degrees with 90-mm lag screw and 50-mm distal interlocking screw in the static hole. INDICATIONS FOR PROCEDURE: The patient was admitted to [facility] after a fall. She sustained a reverse obliquity intertrochanteric femur fracture. She has quite significant dementia and does not even know that she broke her leg, even though she has been told multiple times. Her daughter, who is the power of deputy attorney general, was present during my examination and I have discussed with her the findings, diagnosis, recommendations and risks and complications associated with surgery. She gave verbal and written [place] [address] OPERATIVE REPORT Name: YAHIR CARDENAS Room: [address] IN ..#: [id number] Admission: 03/28/18 Attend Phys: Thang Carlson Discharge: 04/06/18 Date of : 31 Report #: [id number] Please see consultation note for full details of our discussion. DESCRIPTION OF PROCEDURE: I marked the left lower extremity in the presence of the operative team members; everyone agreed this was correct. She was then taken back to the operative suite, where a briefing was performed indicating correct patient, procedure, site, antibiotics and implants were present and sterile. All team members agreed. General anesthetic was administered. She was then transferred over to the operative table in the supine position, well padded and secured. Right leg was placed into the well leg position in appropriate angles and well padded. The fracture table was then used to perform a closed reduction of the fracture site. We brought in C-arm to confirm that we had an excellent reduction in multiple planes. The left lower extremity was sterilely prepped and draped in the standard fashion. Time-out performed indicating correct patient, procedure, site, antibiotics and that implants were present and sterile. All team members agreed. We brought in the C-arm and marked out our incisions. A scalpel through skin proximal to the greater trochanter and blunt dissection down to the greater trochanter. Smooth-tipped guidewire was placed in the appropriate position, confirmed on multiplanar C-arm image and then that guidewire was reamed over. Ball-tipped guidewire inserted and placed distal to the superior pole of the patella, confirmed on multiplanar image to be appropriate, measured as 420 mm. Therefore, an 11 x 420 mm x 125 degree nail was thrown on to the back table. This was inserted over the guidewire, went down to the knee on the lateral, staffed this down until it could not be seated any further, went back up to the AP image of the hip. 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 We had already confirmed that we could not seat the nail any further and if we were to accept the position of this while the lag screw could have been inserted, it would have been sitting in too high of the position on the AP image, which would increase her risk of cutout. We therefore knew that we would need approximately 10 more millimeters of seeding. The distal holes on the nail are 18 mm from the tip. Therefore, subtracting 20 mm to a 400 mm nail would be appropriate. Therefore, we threw an 11 x 400 mm x 125 degree nail on the back table, removed the previous nail, inserted the new nail over the guidewire, confirmed on the lateral that it was sitting as distal as it could. We then went back up to the hip. We were too low. We brought this back up to where it was in appropriate position, made an incision for a double sleeve. This was taken down to bone and inserted the guidewire for lag screw and confirmed that this was in appropriate position on both AP and lateral images, measured for 85 and therefore, a 90-mm screw was thrown and reamed to 85. The final lag screw was inserted. Good purchase, did not cause any mal-reduction. We inserted our set screw. This set screw was left in a static position as this was a reverse obliquity subtrochanteric component. We confirmed that the set screw was engaged by trying to turn the lag screwdriver handle, which we could not. We, therefore, removed the external aiming devices and saved final images showing good reduction of the fracture and good placement of hardware. [address] [address] OPERATIVE REPORT Name: YAHIR CARDENAS Room: [address] M.R.#: [id number] Admission: 03/28/18 Attend Phys: Thang Carlson Discharge: 04/06/18 Date of : 31 Report #: [id number] We turned our attention distally, where we performed perfect agdaagux technique. Scalpel through skin, drilled, measured and then inserted the appropriately-sized distal interlocking screw through the static hole and saved those images and dismissed the C-arm. Irrigated all incisions with normal saline. Deep layers were closed with 0 Vicryl [id number] interrupted. Superficial layers were closed with 2-0 Monocryl buried deep and nuria for skin. Debriefing was performed, where we confirmed the procedure, blood loss and that all counts were correct and final. All team members agreed. At that point in time, sterile dressings were applied of Xeroform gauze, 4 x 4s, ABD and Medipore tape. She was extubated and taken to PACU in stable condition. POSTOPERATIVE COURSE AND EVALUATION: I spoke with her daughter, addressed any questions she had. She was very thankful for our time and efforts for her mother. The patient was resting in PACU, stable vital signs. Overall, pain was controlled. PACU films showed stable internal fixation and fracture reduction. Neurovascularly, she was intact in that left lower extremity, unchanged prior to preoperative exam, even though getting a cooperative exam is difficult. She was moving things appropriately and when you pinched her, she would withdraw from that examination and had good cap refill. Compartments were soft and compressible. Dressings were clean, dry and intact. She will be given aspirin for DVT prophylaxis; this was ran by Medicine and they agreed. She is to weightbear as tolerated. PT, OT. Case management to help with discharge planning. <ELECTRONICALLY SIGNED> By: Jacob Salazar DO 04/09/18 0714 [id number] Fidel Enamorado DO /nt
== END 2018-04-06 13:30 | disposition hospice, home (50) | DRG 480 ==
LOC: M.ERS 14:06 → M.TBA-ER 15:01 → M.3W 15:01 → M.2W 03-30 23:18
PROVIDERS: Family Medicine; Internal Medicine; Internal Medicine Infectious Disease; Orthopaedic Surgery; Physician Assistant; ADMIT Internal Medicine
PROC: 0QS704Z Reposition Left Upper Femur with Internal Fixation Device, Open Approach (ICD-10-PCS; principal; 2018-03-30)
DX: S72.142A Displaced intertrochanteric fracture of left femur, initial encounter for closed fracture (principal); J18.9 Pneumonia, unspecified organism; J96.20 Acute and chronic respiratory failure, unspecified whether with hypoxia or hypercapnia; G93.40 Encephalopathy, unspecified; N39.0 Urinary tract infection, site not specified; I47.1 Supraventricular tachycardia; E87.0 Hyperosmolality and hypernatremia; K21.9 Gastro-esophageal reflux disease without esophagitis; F41.9 Anxiety disorder, unspecified; E66.9 Obesity, unspecified; I10 Essential (primary) hypertension; M81.0 Age-related osteoporosis without current pathological fracture; H26.9 Unspecified cataract; W01.0XXA Fall on same level from slipping, tripping and stumbling without subsequent striking against object, initial encounter; F03.90 Unspecified dementia, unspecified severity, without behavioral disturbance, psychotic disturbance, mood disturbance, and anxiety; Z90.710 Acquired absence of both cervix and uterus; Z88.1 Allergy status to other antibiotic agents; Y93.89 Activity, other specified; Y92.89 Other specified places as the place of occurrence of the external cause; Y99.8 Other external cause status; Z68.26 Body mass index [BMI] 26.0-26.9, adult